=== PATIENT | male | born 1965 | race Caucasian/White ===

== ENCOUNTER 2019-07-05 17:53 | Observation (INO) | payer OTHER ==
[2019-07-05 18:16] LABS: CHLORIDE,CL 103 mEq/L (98-106); SODIUM,NA 141 mEq/L (136-145)
--- NOTE | 2019-07-05 18:41 | EDM.PDOC ---
ED HPI GENERAL MEDICAL PROBLEM - General Chief Complaint: Trauma Stated Complaint: left hip, right elbow, head laceration Time Seen by Provider: 07/05/19 18:00 Source of Information: Reports: Patient, EMS, Family History Limitations: Reports: No Limitations - History of Present Illness INITIAL COMMENTS - FREE TEXT/NARRATIVE: Was on the roof of the house and he was trying to get onto the ladder when it slipped and he fell 9-10 feet to the ground. He hit the back of his head, right elbow and the left thigh/hip. He was able to crawl into the garage to get help from . He denies any LOC. EMS was called as he could not get up to bear weight. He denies any chest pain. relates that he did not lose that much blood on scene as she put pressure on it right away. GCS on admit = 15 Onset: Sudden Onset Date: 07/05/19 Onset Time: 16:50 Location: Reports: Head, Pelvis, Upper Extremity, Right, Lower Extremity, Right Left Hip Pain Score (Numeric/FACES): 2 - Related Data Allergies Allergy/AdvReac Type Severity Reaction Status Date / Time No Known Allergies Allergy Verified 07/05/19 18:06 Home Meds: Home Meds Acetaminophen/HYDROcodone [Roy 325-5 MG] 2 tab PO Q4H PRN #30 tablet 07/06/19 [Rx] Past Medical History - Past Health History Medical/Surgical History: Denies Medical/Surgical History - Past Surgical History Musculoskeletal Surgical History: Reports: Other (See Below) (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 Denies: Neck Pain Skin: Reports: Wound (posterior right scalp) Neurological: Denies: Confusion, Dizziness, Headache Psychiatric: Denies: Confusion ED EXAM, GENERAL - Physical Exam Exam: See Below Free Text/Narrative:: trauma code activated prior to arrival- Pt arrived on vacummn splint with C- collar and headblocks. A-airway is open and maintained per self B- good breathe sounds throughout. No chest wall tenderness. C- laceration to posterior head that had bleeding controlled with pressure. No other bleeding noted. VS are stable D- Pain to the left hip. No obvious deformity. Pain the the right elbow. Increase in pain with movement initially. No obvious deformity. E- exposed to evaluate. No other injuries were noted. No other lacerations. No back tenderness when log rolled. CXR is negative Pelvis xray- negative left hip- negative right elbow xray is negative CT head- CT c-spine- Lab is normal. GCS= 15 Exam Limited By: No Limitations General Appearance: Alert, WD/WN, Moderate Distress Eye Exam: Bilateral Eye: PERRL (3mm bilaterally and brisk.) Ears: Normal External Exam, Normal Canal, Normal TMs Ear Exam: Bilateral Ear: Canal Normal, TM normal Nose: Normal Inspection Throat/Mouth: Normal Inspection, Normal Oropharynx, Normal Voice, No Airway Compromise Head: Atraumatic, Normocephalic Neck: Normal Inspection, Supple, Non-Tender Respiratory/Chest: No Respiratory Distress, Lungs Clear, Normal Breath Sounds, Chest Non-Tender Cardiovascular: Normal Peripheral Pulses, Regular Rate, Rhythm, No Edema GI/Abdominal: Normal Bowel Sounds, Soft, Non-Tender, No Organomegaly, Pelvis Stable Back Exam: Normal Inspection, Full Range of Motion Extremities: Normal Inspection, Normal Range of Motion, Non-Tender, No Pedal Edema, Normal Capillary Refill Neurological: Alert, Oriented, CN II-XII Intact Psychiatric: Normal Affect Skin Exam: Warm, Dry, Intact Course - Vital Signs Last Recorded V/S: Last Vital Signs Temp 98.8 F 07/06/19 12:00 Pulse 71 07/06/19 12:00 Resp 18 07/06/19 12:00 BP 124/70 07/06/19 12:00 Pulse Ox 95 07/06/19 12:00 - Orders/Labs/Meds Labs: Laboratory Tests 07/05/19 07/05/19 07/05/19 Range/Units 18:01 18:01 18:01 WBC 6.6 (5.0-10.0) 10^3/uL RBC 4.68 (4.50-6.00) 10^6/uL Hgb 14.2 (14.0-18.0) g/dL Hct 41.5 (40.0-54.0) % MCV 88.7 (82.0-94.0) fL MCH 30.3 (27.0-32.0) pg MCHC 34.2 (33.0-38.0) g/dL RDW Coeff of Deanna 13.1 (11.0-15.0) % Plt Count 266 (150-400) 10^3/uL Neut % (Auto) 55.2 (35-85) % Lymph % (Auto) 33.3 (10-55) % [place] % (Auto) 7.4 (0-16) % Eos % (Auto) 3.3 (0-5) % Baso % (Auto) 0.8 (0-3) % Neut # (Auto) 3.63 (1.80-7.00) 10^3/uL Lymph # (Auto) 2.19 (1.00-4.80) 10^3/uL [place] # (Auto) 0.49 (0.00-0.80) 10^3/uL Eos # (Auto) 0.22 (0.00-0.45) 10^3/uL Baso # (Auto) 0.05 10^3/uL PT 10.3 (9.7-12.3) SEC INR 1.00 (0.92-1.18) Sodium 141 (136-145) mEq/L Potassium 4.0 (3.5-5.0) mEq/L Chloride 103 (98-106) mEq/L Carbon Dioxide 28 (21-32) mmol/L BUN 16 (7-18) mg/dL Creatinine 1.2 (0.7-1.3) mg/dL Est Cr Clr Drug Dosing TNP Estimated GFR (MDRD) > 60 (>=60) mL/min Glucose 104 H (75-99) mg/dL Lactic Acid (0.4-2.0) mmol/L Calcium 8.7 (8.4-10.1) mg/dL Total Bilirubin 0.2 (0.0-1.0) mg/dL AST 17 (15-37) U/L ALT 20 (12-78) U/L Alkaline Phosphatase 77 (46-116) U/L Total Protein 7.1 (6.4-8.2) g/dL Albumin 3.8 (3.4-5.0) g/dL Amylase 63 (25-115) U/L 07/05/19 Range/Units 18:01 WBC (5.0-10.0) 10^3/uL RBC (4.50-6.00) 10^6/uL Hgb (14.0-18.0) g/dL Hct (40.0-54.0) % MCV (82.0-94.0) fL MCH (27.0-32.0) pg MCHC (33.0-38.0) g/dL RDW Coeff of Deanna (11.0-15.0) % Plt Count (150-400) 10^3/uL Neut % (Auto) (35-85) % Lymph % (Auto) (10-55) % [place] % (Auto) (0-16) % Eos % (Auto) (0-5) % Baso % (Auto) (0-3) % Neut # (Auto) (1.80-7.00) 10^3/uL Lymph # (Auto) (1.00-4.80) 10^3/uL [place] # (Auto) (0.00-0.80) 10^3/uL Eos # (Auto) (0.00-0.45) 10^3/uL Baso # (Auto) 10^3/uL PT (9.7-12.3) SEC INR (0.92-1.18) Sodium (136-145) mEq/L Potassium (3.5-5.0) mEq/L Chloride (98-106) mEq/L Carbon Dioxide (21-32) mmol/L BUN (7-18) mg/dL Creatinine (0.7-1.3) mg/dL Est Cr Clr Drug Dosing Estimated GFR (MDRD) (>=60) mL/min Glucose (75-99) mg/dL Lactic Acid 0.9 (0.4-2.0) mmol/L Calcium (8.4-10.1) mg/dL Total Bilirubin (0.0-1.0) mg/dL AST (15-37) U/L ALT (12-78) U/L Alkaline Phosphatase (46-116) U/L Total Protein (6.4-8.2) g/dL Albumin (3.4-5.0) g/dL Amylase (25-115) U/L Meds: Medications Discontinued Medications Generic Name Dose Route Start Last Admin Trade Name Freq PRN Reason Stop Dose Admin Acetaminophen 650 mg 07/05/19 20:14 Tylenol PO Q4H PRN Pain (Mild 1-3)/fever Hydrocodone Bitart/Acetaminophen 2 tab 07/05/19 19:40 07/06/19 13:13 Roy 325-5 Mg PO 2 tab Q4H PRN Administration Pain Hydrocodone Bitart/Acetaminophen 2 tab 07/05/19 20:14 Roy 325-5 Mg PO Q4H PRN Pain (moderate 4-6) Diphtheria/Tetanus/Acell Pertussis 0.5 ml 07/06/19 13:11 07/06/19 13:55 Adacel IM 07/06/19 13:12 0.5 ml .ONCE ONE Administration Enoxaparin Sodium 40 mg 07/05/19 20:15 07/05/19 20:40 Lovenox SUBCUT 40 mg Q24H REBEKAH Administration Sodium Chloride 10 ml 07/05/19 20:14 Saline Flush FLUSH ASDIRECTED PRN Keep Vein Open - Re-Assessments/Exams Free Text/Narrative Re-Assessment/Exam: 07/05/19 19:10 Has 3 cm laceration noted to the back of the right occiput. Area cleaned well and then 3 carmita inserted. Minimal amount of blood loss noted. GCS remains 15 07/05/19 19:52 Attempted to stand and bear weight on the left hip. Increase in pain and unable to sit on the hip due to the increase in the pain that it causes. He does feel lightheaded when sitting up. Neuros remain intact. Due to the above reasons he is going to be admitted observation with neuro checks and pain control. If still unable to bear weight may need to have CT hip tomorrow. Departure - Departure Time of Disposition: 20:00 Disposition: Refer to Observation Clinical Impression: Elbow pain, right, Left hip pain Fall from roof Qualifiers: Encounter type: initial encounter Qualified Code(s): W13.2XXA - Fall from, out of or through roof, initial encounter Laceration of head Qualifiers: Encounter type: initial encounter Location of open wound of head: scalp Foreign body presence: without foreign body Qualified Code(s): S01.01XA - Laceration without foreign body of scalp, initial encounter - Discharge Information *PRESCRIPTION DRUG MONITORING PROGRAM REVIEWED*: Not Applicable *COPY OF PRESCRIPTION DRUG MONITORING REPORT IN PATIENT SHIRA: Not Applicable Sepsis Event Note - Focused Exam Date Exam was Performed: 07/10/19 Time Exam was Performed: 07:58 - Problem List & Annotations (1) Fall from roof SNOMED Code(s): 593415223 Code(s): W13.2XXA - FALL FROM, OUT OF OR THROUGH ROOF, INITIAL ENCOUNTER Status: Acute Priority: High Qualifiers: Encounter type: initial encounter Qualified Code(s): W13.2XXA - Fall from, out of or through roof, initial encounter (2) Elbow pain, right SNOMED Code(s): 03564746 Code(s): M25.521 - PAIN IN RIGHT ELBOW Status: Acute Priority: Medium (3) Laceration of head SNOMED Code(s): 927371425 Code(s): S01.91XA - LACERATION W/O FOREIGN BODY OF UNSP PART OF HEAD, INIT Status: Acute Priority: Medium Qualifiers: Encounter type: initial encounter Location of open wound of head: scalp Foreign body presence: without foreign body Qualified Code(s): S01.01XA - Laceration without foreign body of scalp, initial encounter (4) Left hip pain SNOMED Code(s): 90317866 Code(s): M25.552 - PAIN IN LEFT HIP Status: Acute Priority: Medium - Problem List Review Problem List Initiated/Reviewed/Updated: Yes - Assessment/Plan Admission H&P: Please use this note as an admission H&P Assessment:: Mild concussive symptoms with pain and unable to bear weight to the left hip. Plan: Will admit observation to monitor neuro checks and pain control with the left hip pain. GCS is 15 on admission to the hospital.
[2019-07-05] MEDS: Acetaminophen/HYDROcodone 325-5 MG Tab PO PRN (19:46)
[2019-07-05] MEDS ORDERED: Sodium Chloride 0.9% 10 ML Syringe FLUSH PRN (20:14)
[2019-07-05] MEDS ORDERED: Acetaminophen 325 MG Tab PO PRN (20:14)
[2019-07-05] MEDS ORDERED: Acetaminophen/HYDROcodone 325-5 MG Tab PO PRN (20:14)
[2019-07-05] MEDS ORDERED: Enoxaparin 40 MG/0.4 ML Syringe SUBCUT SCH (20:15)
[2019-07-06] MEDS: Acetaminophen/HYDROcodone 325-5 MG Tab PO PRN ×3 (00:05→13:13)
[2019-07-06] MEDS ORDERED: Diphtheria,Pertussis(Acell),Tetanus Vaccine 0.5 ML Syringe IM ONE (13:11)
--- NOTE | 2019-07-08 20:04 | PCM.DCSUM1 ---
Discharge Summary - Hospital Course Free Text/Narrative:: Bartolome is a 54 year old who presented to ER after falling off a ladder at his home. Was on the roof clearing a quilt sewer vent, was stepping down on to the first rung of his ladder when the ladder slipped and he fell. Patient did land on the elevator, hit the back of his head but did not lose consciousness. Minimal bleeding from head wound at scene. Hit elbow and landed on left hip. Was unable to get up at scene so EMS was called. ON arrival, GCS 15. Was having trouble bearing on left hip. CT scan of head, neck done, negative. Chest xray , left hip xray negative. Admitted for pain control and neurological monitoring. Diagnosis: Stroke: No Modified [place] Scale: No Symptoms at All Modified [place] Scale Score: 0 - Discharge Data Discharge Date: 07/06/19 Discharge Disposition: Home, Self-Care 01 Condition: Fair - Referral to Home Health Primary Care Physician: Renetta Hunter PA-C - Patient Summary/Data Complications: none Consults: Consultations 07/05/19 20:51 Consult to Physical Therapy [PT Evaluation and Treatment] [CONS] Routine Hospital Course: Patient stable. Still had ongoing pain in left hip and difficulty bearing weight on leg, CT scan of hip and pelvis was done this am. Read has negative, noted hematoma to left hip. Using walker to ambulate. Taking Blain for pain. Minimal head discomfort. Will discharge home. Blain for pain. Follow up with Renetta Hunter in one week. - Patient Instructions Diet: Usual Diet as Tolerated Activity: As Tolerated - Discharge Plan *PRESCRIPTION DRUG MONITORING PROGRAM REVIEWED*: Not Applicable *COPY OF PRESCRIPTION DRUG MONITORING REPORT IN PATIENT SHIRA: Not Applicable Prescriptions/Med Rec: Acetaminophen/HYDROcodone [Blain 325-5 MG] 2 tab PO Q4H PRN #30 tablet PRN Reason: Pain (Moderate 4-6) Home Medications: Home Meds Acetaminophen/HYDROcodone [Blain 325-5 MG] 2 tab PO Q4H PRN #30 tablet 07/06/19 [Rx] Patient Handouts: Concussion, Adult Forms: ED Department Discharge Referrals: Renetta Hunter PA-C [Primary Care Provider] - (Follow up with Renetta Hunter in one week) - Discharge Summary/Plan Comment DC Time >30 min.: No - General Info Date of Service: 07/06/19 Admission Dx/Problem (Free Text: Fall from roof Laceration to head Hip pain Right elbow pain Functional Status: Reports: Pain Controlled, Tolerating Diet, Ambulating - Review of Systems General: Reports: No Symptoms HEENT: Reports: Headaches Pulmonary: Denies: Shortness of Breath, Cough Cardiovascular: Denies: Chest Pain, Edema, Lightheadedness Gastrointestinal: Denies: Abdominal Pain, Nausea, Vomiting Genitourinary: Reports: No Symptoms Musculoskeletal: Reports: Leg Pain, Joint Pain Skin: Reports: No Symptoms Neurological: Reports: No Symptoms - Patient Data Vitals - Most Recent: Last Vital Signs Temp 98.8 F 07/06/19 12:00 Pulse 71 07/06/19 12:00 Resp 18 07/06/19 12:00 BP 124/70 07/06/19 12:00 Pulse Ox 95 07/06/19 12:00 Weight - Most Recent: 183 lb 1.6 oz Med Orders - Current: Current Medications Discontinued Medications Acetaminophen (Tylenol) 650 mg PO Q4H PRN PRN Reason: Pain (Mild 1-3)/fever Hydrocodone Bitart/Acetaminophen (Blain 325-5 Mg) 2 tab PO Q4H PRN PRN Reason: Pain Last Admin: 07/06/19 13:13 Dose: 2 tab Hydrocodone Bitart/Acetaminophen (Blain 325-5 Mg) 2 tab PO Q4H PRN PRN Reason: Pain (moderate 4-6) Diphtheria/Tetanus/Acell Pertussis (Adacel) 0.5 ml IM .ONCE ONE Stop: 07/06/19 13:12 Last Admin: 07/06/19 13:55 Dose: 0.5 ml Enoxaparin Sodium (Lovenox) 40 mg SUBCUT Q24H [facility] Last Admin: 07/05/19 20:40 Dose: 40 mg Sodium Chloride (Saline Flush) 10 ml FLUSH ASDIRECTED PRN PRN Reason: Keep Vein Open - Exam General: Reports: Alert, Oriented HEENT: Reports: Mucous Membr. Moist/[place], Other (carmita intact to posterior head) Neck: Reports: Supple Lungs: Reports: Clear to Auscultation, Normal Respiratory Effort Cardiovascular: Reports: Regular Rate, Regular Rhythm GI/Abdominal Exam: Normal Bowel Sounds, Soft, Non-Tender Extremities: Other (left hip very tender with palpation. Has difficulty with adduction and abduction of left hip.) Skin: Reports: Warm, Dry, Ecchymosis Wound/Incisions: Reports: No Drainage Neurological: Reports: No New Focal Deficit
== END 2019-07-06 14:00 | disposition home or self-care (01) ==
LOC: CC.ED 17:53 → UNDOADMOB 19:49 → CC.MS 19:49
PROVIDERS: ADMIT Physician Assistant Medical; ATTEND Family Medicine
DX: S01.01XA Laceration without foreign body of scalp, initial encounter (principal); M25.552 Pain in left hip; M25.521 Pain in right elbow; W11.XXXA Fall on and from ladder, initial encounter; Y93.89 Activity, other specified; Y92.008 Other place in unspecified non-institutional (private) residence as the place of occurrence of the external cause
CPT/HCPCS: 12002; 36415; 70450; 71045; 72125; 72170; 73070-RT; 73700-LT; 80053; 81001; 82150; 83605; 85025; 85610; 90471; 90715; 96372; 97161-GP; 99217; 99220; A9270-GY; G0378; J1650